=== PATIENT | male | born 1960 | race Caucasian/White ===

== ENCOUNTER 2021-03-03 16:22 | Emergency (ER) | payer MEDICAID ==
[2021-03-03] MEDS ORDERED: Sodium Chloride 0.9% 10 ML Syringe FLUSH PRN (16:30)
[2021-03-03] MEDS ORDERED: Sodium Chloride 0.9% 2.5 ML Syringe FLUSH PRN (16:30)
[2021-03-03] MEDS ORDERED: VANCOmycin 2 GM/400 ML 2 GM in Premix Bag 1 BAG IV ONE (17:00)
[2021-03-03 17:17] LABS: BLOOD UREA NITROGEN,BUN 12 mg/dL (7.0-18.0); CARBON DIOXIDE,CO2 26.8 mmol/L (21.0-32.0); CHLORIDE,CL 98 mmol/L (98-107); GLUCOSE RANDOM 98 mg/dL (74-106); POTASSIUM,K 4.2 mmol/L (3.5-5.1); SODIUM,NA 134 mmol/L (136-148)
--- NOTE | 2021-03-03 17:36 | EDM.PDOC ---
ED HPI GENERAL MEDICAL PROBLEM - General Chief Complaint: General Stated Complaint: IV ANTIBIOTICS Time Seen by Provider: 03/03/21 16:27 Source of Information: Reports: Patient History Limitations: Reports: No Limitations - History of Present Illness INITIAL COMMENTS - FREE TEXT/NARRATIVE: HISTORY AND PHYSICAL: History of present illness: Patient is a 60-year-old male who presents emergency room today from [facility] from Dr. Conrad, neurosurgery, with desire for patient to receive IV vancomycin. I did receive a call from Dr. Conrad that patient was on his way to the ED. According to Dr. Conrad, patient had a anterior cervical discectomy and fusion on 20 February. She states that patient has had an issue with infection of the area and has been on IV antibiotics with a PICC line. She states that patient was supposed to be on vancomycin 1.5 g twice daily but was switched to daptomycin by the infectious disease provider. She states that she saw patient today in the clinic and he had an MRI done earlier today and lab work and states that his white blood cell count and ESR/sed rate are worsening despite the daptomycin so she would like patient to be immediately started back on vancomycin. She states that she is concerned that if not placed back on vancomycin immediately, that patient will develop a cervical epidural abscess. Patient states that over the past several days, he has had worsening pain of his neck but states that he has not had any fevers. Patient states in general he has felt tired and rundown which has worsened over the past 1 week. Patient states that he has been giving antibiotics through his PICC line but states that the daptomycin has not been working like the vancomycin was. Patient denies any trauma or injury or any other associated symptoms. Patient denies any new neuro symptoms. Patient denies fever, chills, chest pain, shortness of breath, or cough. Denies headache, neck stiff ness, change in vision, syncope, or near syncope. Denies nausea, vomiting, abdominal pain, diarrhea, constipation, or dysuria. Has not noted any blood in urine or stool. Patient has been eating and drinking appropriately. Review of systems: As per history of present illness and below otherwise all systems reviewed and negative. Past medical history: As per history of present illness and as reviewed below otherwise noncontributory. Surgical history: As per history of present illness and as reviewed below otherwise noncontributory. Social history: See social history for further information Family history: As per history of present illness and as reviewed below otherwise noncontributory. Physical exam: General: Patient is alert, oriented, and in no acute distress. Patient sitting comfortably on exam table. Vitals stable and reviewed by me. HEENT: Surgical incision noted to the front of the neck which appears to be healing well without erythema or drainage. Otherwise, atraumatic, normocephalic, pupils equal and reactive bilaterally, negative for conjunctival pallor or scleral icterus, mucous membranes moist, throat clear, neck supple, nontender, trachea midline. No drooling or trismus noted. No meningeal signs. No hot potato voice noted. Lungs: Clear to auscultation, breath sounds equal bilaterally, chest nontender. Heart: S1S2, regular rate and rhythm without overt murmur Abdomen: Soft, nondistended, nontender. Negative for masses or hepatosplenomegaly. Negative for costovertebral tenderness. Pelvis: Stable nontender. Genitourinary: Deferred. Rectal: Deferred. Skin: Intact, warm, dry. No lesions or rashes noted. Extremities: Patient does have limited range of motion of the cervical spine due to pain but does have some range of motion without pain or difficulty. Patient does not have any specific point tenderness to palpation of the cervical spine. Patient has full range of motion of the thoracic and lumbar spine without pain or difficulty. Full range of motion of all extremities without difficulty. Able to ambulate today in the ED. Otherwise, atraumatic, negative for cords or calf pain. Neurovascular unremarkable. Neuro: Awake, alert, oriented. Cranial nerves II through XII unremarkable. Cerebellum unremarkable. Motor and sensory unremarkable throughout. Exam nonfocal. Medical Decision Making: Patient is a 60-year-old male status post a ACDF by neurosurgeon Dr. Conrad who presents emergency room today per Dr. Conrad's request to receive IV vancomycin for concern of postop infection of the cervical spine. Patient did receive lab work and MRI of the cervical spine earlier today with the MRI performed at our facility. Dr. Conrad, neurosurgery, states she has personally reviewed the MRI images from today and recommends IV vancomycin 1GIV over the weekend and patient can do this outpatient and come in for infusions. At this time, the MRI results have not been read by radiology. I did call down to MRI to have the report switched to stat instead of normal read. According to Dr. Conrad, patient was switched from IV vancomycin to IV daptomycin and has been having worsening ESR/CRP and white blood cell count despite the daptomycin with known infection of the cervical spine area secondary to ACDF procedure. Dr. Conrad would like patient to receive IV vancomycin. Dr. Conrad also like patient to receive IV vancomycin over the weekend and wondering if this is able to be initiated for patient here. Upon arrival to the ED, patient is vitally stable and well-appearing on exam. Patient does have a surgical incision at the front of his neck which appears to be healing well. Patient does have limited range of motion of the cervical spine but does have some range of motion without pain or difficulty. No point tenderness to palpation of the cervical spine. Will obtain IV access, obtain blood cultures, lactic acid, and provide IV vancomycin while awaiting work-up. CBC does show mild leukocytosis with white blood cell count at 13.97, otherwise mild derangements of CBC unremarkable. ESR is elevated at 62. CMP does show have mild derangements are unremarkable. CRP was elevated at 10. Blood cultures pending. Lactic acid is within normal limits. MRI of the cervical spine shows interval postsurgical changes related to C3-C4 ACDF. Mildly thickened enhancement within the ventral epidural space at the C3 and C4 level is favored to be postoperative in nature, however, infection is not excluded in the appropriate clinical setting. Otherwise, stable findings of the cervical spine in comparison to the study from 01/05/2021. On reevaluation of patient, he remains vitally stable and comfortable throughout stay in ED. I did speak with the pharmacist about getting patient set up over the weekend to receive 1 g IV vancomycin every 12 hours as recommended by Dr. Conrad, neurosurgery. Patient already has a PICC line in place. Outpatient RX for this infusion filled out. Strict return precautions thoroughly discussed with patient. Discussed importance for follow-up with his primary care provider and the neurosurgeon, Dr. Conrad Voices understanding and is agreeable to plan of care. Denies any further questions or concerns at this time. Diagnostics: CBC, CMP, Lactate, Blood cultures x 2 Therapeutics: NS, Vancomycin Prescription: Outpatient IV Vancomycin infusions Impression: Post operative infection S/P Anterior Cervical Discectomy Fusion Plan: 1. You have been set up to receive the IV vancomycin every 12 hours over the weekend as recommended by your neurosurgeon, Dr. Conrad, as discussed. I would like you to retouch base with her on Saturday about further antibiotic management as I have only written for you to receive these infusions over the weekend. 2. You will need to check into the front line leader every 12 hours over the weekend in order to receive these infusions. 3. You can alternate ibuprofen and Tylenol as directed for pain and discomfort. You can also take the Lyrica as prescribed to you by Dr. Conrad. Return to the ED as needed and as discussed. Follow-up with your primary care provider and Dr. Conrad as discussed. Definitive disposition and diagnosis as appropriate pending reevaluation and review of above. - Related Data Allergies Allergy/AdvReac Type Severity Reaction Status Date / Time Penicillins Allergy Rash Verified 03/03/21 16:28 Sulfa (Sulfonamide Allergy Rash Verified 03/03/21 16:28 Antibiotics) Home Meds: Home Meds Acetaminophen 650 mg PO ASDIRECTED PRN 03/03/21 [History] Albuterol [Ventolin HFA] 2 puff INH Q4H PRN 03/03/21 [History] FLUoxetine [PROzac] 10 mg PO DAILY 03/03/21 [History] Gabapentin [Neurontin] 300 mg PO TID 03/03/21 [History] LORazepam [Lorazepam] 2 mg PO ASDIRECTED 03/03/21 [History] Non-Formulary Medication [NF Drug] 1 puff INH DAILY 03/03/21 [History] Omeprazole 20 mg PO 03/03/21 [History] Pregabalin [Lyrica] 150 mg PO BID 03/03/21 [History] Zolpidem [Ambien] 1 tab PO BEDTIME 03/03/21 [History] amLODIPine [Norvasc] 10 mg PO DAILY 03/03/21 [History] atorvaSTATin [Lipitor] 10 mg PO BEDTIME 03/03/21 [History] lisinopriL [Lisinopril] 20 mg PO DAILY 03/03/21 [History] Past Medical History - Past Surgical History Other HEENT Surgeries/Procedures: nasal surgery Other Musculoskeletal Surgeries/Procedures:: left foot sugery, neck/spinal surge ry. Social & Family History - Tobacco Use Tobacco Use Status *Q: Never Tobacco User - Recreational Drug Use Recreational Drug Use: No ED ROS GENERAL - Review of Systems Review Of Systems: Comprehensive ROS is negative, except as noted in HPI. ED EXAM, GENERAL - Physical Exam Exam: See Below (see dictation) Course - Vital Signs Last Recorded V/S: Last Vital Signs Temp 98.6 F 03/03/21 19:09 Pulse 91 03/03/21 20:05 Resp 17 03/03/21 20:05 BP 121/77 03/03/21 20:05 Pulse Ox 94 L 03/03/21 20:05 - Orders/Labs/Meds Orders: Active Orders 24 hr Category Date Time Status CULTURE BLOOD [BC] Stat Lab 03/03/21 16:45 Results CULTURE BLOOD [BC] Stat Lab 03/03/21 17:19 Received Blood Culture x2 Reflex Set [OM.PC] Stat Oth 03/03/21 16:34 Ordered Saline Lock Insert [OM.PC] Stat Oth 03/03/21 16:30 Ordered Labs: Laboratory Tests 03/03/21 03/03/21 03/03/21 Range/Units 16:45 16:45 16:45 WBC 13.97 H (4.0-11.0) K/uL RBC 4.34 L (4.50-5.90) M/uL Hgb 13.6 (13.0-17.0) g/dL Hct 40.2 (38.0-50.0) % MCV 92.6 (80.0-98.0) fL MCH 31.3 (27.0-32.0) pg MCHC 33.8 (31.0-37.0) g/dL RDW Std Deviation 46.2 (28.0-62.0) fl RDW Coeff of Nitin 14 (11.0-15.0) % Plt Count 277 (150-400) K/uL MPV 12.70 H (7.40-12.00) fL Neut % (Auto) 62.6 (48.0-80.0) % Lymph % (Auto) 22.3 (16.0-40.0) % [place] % (Auto) 11.2 (0.0-15.0) % Eos % (Auto) 3.5 (0.0-7.0) % Baso % (Auto) 0.4 (0.0-1.5) % Neut # (Auto) 8.7 H (1.4-5.7) K/uL Lymph # (Auto) 3.1 H (0.6-2.4) K/uL [place] # (Auto) 1.6 H (0.0-0.8) K/uL Eos # (Auto) 0.5 (0.0-0.7) K/uL Baso # (Auto) 0.1 (0.0-0.1) K/uL Nucleated RBC % 0.0 /100WBC Nucleated RBCs # 0 K/uL ESR 62 H (0-19) mm/hr Sodium 134 L (136-148) mmol/L Potassium 4.2 (3.5-5.1) mmol/L Chloride 98 (98-107) mmol/L Carbon Dioxide 26.8 (21.0-32.0) mmol/L BUN 12 (7.0-18.0) mg/dL Creatinine 1.1 (0.8-1.3) mg/dL Est Cr Clr Drug Dosing 85.11 mL/min Estimated GFR (MDRD) > 60.0 ml/min Glucose 98 (74-106) mg/dL Lactic Acid (0.4-2.0) mmol/L Calcium 9.4 (8.5-10.1) mg/dL Total Bilirubin 0.3 (0.2-1.0) mg/dL AST 21 (15-37) IU/L ALT 42 (14-63) IU/L Alkaline Phosphatase 133 H (46-116) U/L C-Reactive Protein 10.00 H (0.00-0.90) mg/dL Total Protein 7.6 (6.4-8.2) g/dL Albumin 3.0 L (3.4-5.0) g/dL Globulin 4.6 H (2.6-4.0) g/dL Albumin/Globulin Ratio 0.7 L (0.9-1.6) 03/03/21 Range/Units 16:45 WBC (4.0-11.0) K/uL RBC (4.50-5.90) M/uL Hgb (13.0-17.0) g/dL Hct (38.0-50.0) % MCV (80.0-98.0) fL MCH (27.0-32.0) pg MCHC (31.0-37.0) g/dL RDW Std Deviation (28.0-62.0) fl RDW Coeff of Nitin (11.0-15.0) % Plt Count (150-400) K/uL MPV (7.40-12.00) fL Neut % (Auto) (48.0-80.0) % Lymph % (Auto) (16.0-40.0) % [place] % (Auto) (0.0-15.0) % Eos % (Auto) (0.0-7.0) % Baso % (Auto) (0.0-1.5) % Neut # (Auto) (1.4-5.7) K/uL Lymph # (Auto) (0.6-2.4) K/uL [place] # (Auto) (0.0-0.8) K/uL Eos # (Auto) (0.0-0.7) K/uL Baso # (Auto) (0.0-0.1) K/uL Nucleated RBC % /100WBC Nucleated RBCs # K/uL ESR (0-19) mm/hr Sodium (136-148) mmol/L Potassium (3.5-5.1) mmol/L Chloride (98-107) mmol/L Carbon Dioxide (21.0-32.0) mmol/L BUN (7.0-18.0) mg/dL Creatinine (0.8-1.3) mg/dL Est Cr Clr Drug Dosing mL/min Estimated GFR (MDRD) ml/min Glucose (74-106) mg/dL Lactic Acid 0.7 (0.4-2.0) mmol/L Calcium (8.5-10.1) mg/dL Total Bilirubin (0.2-1.0) mg/dL AST (15-37) IU/L ALT (14-63) IU/L Alkaline Phosphatase (46-116) U/L C-Reactive Protein (0.00-0.90) mg/dL Total Protein (6.4-8.2) g/dL Albumin (3.4-5.0) g/dL Globulin (2.6-4.0) g/dL Albumin/Globulin Ratio (0.9-1.6) Meds: Medications Discontinued Medications Generic Name Dose Route Start Last Admin Trade Name Freq PRN Reason Stop Dose Admin Vancomycin HCl 2 gm/ Premix 400 mls @ 266.667 mls/hr 03/03/21 17:00 03/03/21 17:17 IV 03/03/21 18:29 266.667 mls/hr ONETIME ONE Administration Sodium Chloride 10 ml 03/03/21 16:30 Sodium Chloride 0.9% 10 Ml Syringe FLUSH ASDIRECTED PRN Keep Vein Open Sodium Chloride 2.5 ml 03/03/21 16:30 Sodium Chloride 0.9% 2.5 Ml Syringe FLUSH ASDIRECTED PRN Keep Vein Open Vancomycin HCl 1 dose 03/03/21 16:34 03/03/21 17:16 Pharmacy To Dose - Vancomycin .XX 03/03/21 16:35 Not Given ONETIME ONE Departure - Departure Time of Disposition: 19:55 Disposition: Home, Self-Care 01 Clinical Impression: Post op infection - Discharge Information Referrals: Quinn Sapp MD [Primary Care Provider] - Forms: ED Department Discharge Additional Instructions: The following information is given to patients seen in the emergency department who are being discharged to home. This information is to outline your options for follow-up care. We provide all patients seen in our emergency department with a follow-up referral. The need for follow-up, as well as the timing and circumstances, are variable depending upon the specifics of your emergency department visit. If you don't have a primary care physician on staff, we will provide you with a referral. We always advise you to contact your personal physician following an emergency department visit to inform them of the circumstance of the visit and for follow-up with them and/or the need for any referrals to a consulting specialist. The emergency department will also refer you to a specialist when appropriate. This referral assures that you have the opportunity for follow-up care with a specialist. All of these measure are taken in an effort to provide you with optimal care, which includes your follow-up. Under all circumstances we always encourage you to contact your private physician who remains a resource for coordinating your care. When calling for follow-up care, please make the office aware that this follow-up is from your recent emergency room visit. If for any reason you are refused follow-up, please contact the [facility] Emergency Department at and asked to speak to the emergency department charge nurse. [facility] [address] [place] [address] [facility] [address] [place] [address] 1. You have been set up to receive the IV vancomycin every 12 hours over the weekend as recommended by your neurosurgeon, Dr. Conrad, as discussed. I would like you to retouch base with her on Saturday about further antibiotic management as I have only written for you to receive these infusions over the weekend. 2. You will need to check into the front line leader every 12 hours over the weekend in order to receive these infusions. 3. You can alternate ibuprofen and Tylenol as directed for pain and discomfort. You can also take the Lyrica as prescribed to you by Dr. Conrda. Return to the ED as needed and as discussed. Follow-up with your primary care provider and Dr. Conrad as discussed. - My Orders Last 24 Hours: My Active Orders 03/03/21 16:30 Saline Lock Insert [OM.PC] Stat 03/03/21 16:34 Blood Culture x2 Reflex Set [OM.PC] Stat 03/03/21 16:45 CULTURE BLOOD [BC] Stat 03/03/21 17:19 CULTURE BLOOD [BC] Stat - Assessment/Plan Last 24 Hours: My Active Orders 03/03/21 16:30 Saline Lock Insert [OM.PC] Stat 03/03/21 16:34 Blood Culture x2 Reflex Set [OM.PC] Stat 03/03/21 16:45 CULTURE BLOOD [BC] Stat 03/03/21 17:19 CULTURE BLOOD [BC] Stat
[2021-03-03 20:06] VITALS: BP 121/77; PULSE 91
== END 2021-03-03 20:06 | disposition home or self-care (01) ==
LOC: MW.ED 16:22
DX: T81.40XA Infection following a procedure, unspecified, initial encounter (principal); Z88.0 Allergy status to penicillin; Z88.2 Allergy status to sulfonamides; Z79.899 Other long term (current) drug therapy
CPT/HCPCS: 36415; 80053; 83605; 85025; 85652; 86140; 87040; 96365; 96366; 99283; J3370